=== PATIENT | female | born 2000 | race African-American/Black ===

== ENCOUNTER 2022-02-14 22:27 | Emergency (ER) | payer OTHER ==
[2022-02-15 01:03] LABS: Bilirubin Negative (Negative); Blood, Urine Negative (Negative); Clarity Clear (Clear); Glucose, Urine (Dipstick) Normal (Negative); Ketone, Urine Negative (Negative); Leukocyte Negative Leu/uL (Negative); Nitrite Negative (Negative); Protein, Urine (Dipstick) Negative (Neg-Trace); Specific Gravity, Urine 1.029 (1.002-1.036); Urobilinogen Normal mg/dL (Less than 2); pH, Urine 6.5 (5.0-9.0)
[2022-02-15 01:04] LABS: Pregnancy Test - Urine (BHCG) Negative (Negative); Pregu Control Background? CLEAR/WHITE (CLR/WHITE); Pregu Control Bar Appear? YES (CONTROL BAR); Specific Gravity 1.029 (1.002-1.036)
[2022-02-15] MEDS ORDERED: Ketorolac Tromethamine 30 MG/ML VIAL ONE (01:23)
== END 2022-02-15 01:51 | disposition home or self-care (01) ==
LOC: ERS 22:27
DX: M54.50 Low back pain, unspecified (principal); G89.29 Other chronic pain; G43.909 Migraine, unspecified, not intractable, without status migrainosus; R10.9 Unspecified abdominal pain; E03.9 Hypothyroidism, unspecified
CPT/HCPCS: 81003; 81025; 96372; 99284; J1885

== ENCOUNTER 2024-07-17 01:29 | Emergency (ER) | payer OTHER, SELFPAY ==
[2024-07-17] MEDS ORDERED: hydrOXYzine 25 MG TAB ONE (02:04)
== END 2024-07-17 02:06 | disposition home or self-care (01) ==
LOC: ERS 01:29
DX: L30.8 Other specified dermatitis (principal); I10 Essential (primary) hypertension
CPT/HCPCS: 99282

== ENCOUNTER 2025-03-30 18:45 | Emergency (ER) | payer SELFPAY ==
[2025-03-30] MEDS ORDERED: Ondansetron PF 4 MG/2 ML Vial ONE (19:45)
[2025-03-30] MEDS ORDERED: Lidocaine Viscous Sol 2% 15 ml UD Cup ONE (20:02)
[2025-03-30] MEDS ORDERED: Mag-Al 1200 mg/1200 mg/30 ML UDCUP ONE (20:02)
[2025-03-30] MEDS ORDERED: Ketorolac Tromethamine 30 MG (1 mL) VIAL ONE (20:02)
[2025-03-30 20:28] LABS: #Basophils Less than 0.03 10x3/uL (0.0-0.2); #Eosinophils Less than 0.03 10x3/uL (0.0-0.7); #Monocytes 0.32 10x3/uL (0.11-0.59); #Neutrophils 2.84 10x3/uL (1.40-6.50); %Basophils 0.4 % (0.0-1.0); %Eosinophils 0.2 % (0.0-10.0); %Lymphocytes 36.1 % (21.0-51.0); %Monocytes 6.4 % (0.0-10.0); %Neutrophils 56.5 % (42.0-75.0); Hematocrit 42.3 % (36.0-47.0); Hemoglobin 13.6 g/dL (12.0-16.0); Mean Corpuscular Hemoglobin 29.8 pg (27.0-31.0); Mean Corpuscular Volume 92.8 fL (78.0-98.0); Platelet Count 297 10x3/uL (130-400); Red Blood Cell (RBC) Count 4.56 mill/uL (4.20-5.40); White Blood Cell (WBC) Count 5.02 10x3/uL (4.8-10.8)
[2025-03-30 20:44] LABS: Pregnancy Test - Urine (BHCG) Negative (Negative); Pregu Control Background? CLEAR/WHITE (CLR/WHITE); Pregu Control Bar Appear? YES (CONTROL BAR)
[2025-03-30 20:53] LABS: ALT (SGPT) 14 U/L (Less than 34); AST (SGOT) 26 U/L (11-34); Albumin 4.2 g/dL (3.1-4.5); Alkaline Phosphatase 108 U/L (40-110); Anion Gap 18 mmol/L (10-20); BUN (Urea Nitrogen) 9 mg/dL (7.0-18.7); Bilirubin, Total 0.3 mg/dL (0.3-1.2); Calc. Creatinine Clearance 0 mL/min (70-130); Calcium 9.3 mg/dL (7.8-10.44); Carbon Dioxide 25 mmol/L (22-29); Chloride 103 mmol/L (98-107); Globulin 3.1 g/dL (2.4-3.5); Glucose 88 mg/dL (70-105); Lipase 31 U/L (8-78); Potassium 3.6 mmol/L (3.5-5.1); Sodium 142 mmol/L (136-145)
[2025-03-30 20:54] LABS: Bacteria/HPF None Seen HPF (None Seen); CAUTI Indications for Culture Pelvic or flank pain; Glucose, Urine (Dipstick) Normal (Negative); Leukocyte Negative Leu/uL (Negative); Protein, Urine (Dipstick) Negative (Neg-Trace); RBC/HPF 0-3 HPF (0-3); Specific Gravity, Urine 1.023 (1.002-1.036); WBC/HPF 0-3 HPF (0-3)
[2025-03-30 20:56] LABS: Urine Culture Reflex No No
== END 2025-03-30 22:00 | disposition home or self-care (01) ==
LOC: ERS 18:45
DX: R11.2 Nausea with vomiting, unspecified (principal); I10 Essential (primary) hypertension
CPT/HCPCS: 80053; 81001; 81025; 83690; 85025; 87428; 96361; 96374; 96375; J1885; J2405